=== PATIENT | male | born 1995 | race Caucasian/White ===

== ENCOUNTER 2018-11-30 11:15 | Emergency (ER) | payer BC ==
[2018-11-30 11:58] VITALS: BP 155/58
[2018-11-30] MEDS ORDERED: Acetaminophen TAB* 325 MG PO ONE (12:08)
[2018-11-30 12:17] LABS: Influenza A Molecular POSITIVE (Negative)
--- NOTE | 2018-11-30 12:28 | ED ---
Influenza-Like Illness - HPI Summary HPI Summary: 23 yr old male with the complaint of fever, chills, runny nose, cough, headache. Onset yesterday on his way here from [facility]. He began with some nasal congestion in the morning and then developed chills, body aches and then cough last evening. He has no other complaints. - History of Current Complaint Chief Complaint: UCGeneralIllness Time Seen by Provider: 11/30/18 11:56 - Allergy/Home Medications Allergies/Adverse Reactions: Allergies Allergy/AdvReac Type Severity Reaction Status Date / Time dust, cats, and mold Allergy Eyes Uncoded 05/17/14 14:22 Itchy/Swollen/Red/Watery PMH/Surg Hx/FS Hx/Imm Hx Respiratory History: Reports: Hx Asthma Infectious Disease History: No Infectious Disease History: Denies: Traveled Outside the [place] in Last 30 Days - Family History Known Family History: Positive: None - Social History Alcohol Use: Occasionally Alcohol Amount: weekends Substance Use Type: Reports: Marijuana Substance Use Comment - Amount & Last Used: occasional use Smoking Status (MU): Former Smoker Review of Systems Constitutional: Negative Positive: Sore Throat, Nasal Discharge Positive: Cough All Other Systems Reviewed And Are Negative: Yes Physical Exam Triage Information Reviewed: Yes Vital Signs On Initial Exam: Initial Vitals Temp Pulse Resp BP Pulse Ox 102.3 F 101 17 155/58 99 11/30/18 11:54 11/30/18 11:54 11/30/18 11:54 11/30/18 11:54 11/30/18 11:54 Vital Signs Reviewed: Yes Appearance: Positive: Well-Appearing, No Pain Distress Skin: Positive: Warm, Skin Color Reflects Adequate Perfusion Head/Face: Positive: Normal Head/Face Inspection Eyes: Positive: EOMI, DAGO ENT: Positive: Pharyngeal erythema, Nasal drainage, TMs normal Neck: Positive: Nontender Respiratory/Lung Sounds: Positive: Clear to Auscultation, Breath Sounds Present Cardiovascular: Positive: RRR. Negative: Murmur Abdomen Description: Negative: Distended Musculoskeletal: Positive: Strength/ROM Intact Neurological: Positive: Sensory/Motor Intact, Alert, Oriented to Person Place, Time, CN Intact II-III Psychiatric: Positive: Normal Diagnostics - Vital Signs Vital Signs Temp Pulse Resp BP Pulse Ox 11/30/18 11:54 102.3 F 101 17 155/58 99 - Laboratory Lab Results: Lab Results 11/30/18 Range/Units 12:13 Influenza A (Rapid) Positive A (Negative) Lab Statement: Any lab studies that have been ordered have been reviewed, and results considered in the medical decision making process. Flu Symptom Course/Dx - Course Course Of Treatment: 23 yr old with influenza a. Rx Tamiflu. - Diagnoses Provider Diagnoses: Influenza A, Hypertension Discharge - Sign-Out/Discharge Documenting (check all that apply): Patient Departure All imaging exams completed and their final reports reviewed: No Studies - Discharge Plan Condition: Good Disposition: HOME Prescriptions: Oseltamivir CAP* [Tamiflu CAP*] 75 mg PO BID #10 cap Patient Education Materials: Influenza (ED), Hypertension (ED) Referrals: [facility] [place] [facility] [Outside] No Primary Care Phys,NOPCP [Primary Care Provider] - - Billing Disposition and Condition Condition: GOOD Disposition: Home
== END 2018-11-30 12:31 | disposition home or self-care (01) ==
LOC: UCCORT 11:15
DX: J10.1 Influenza due to other identified influenza virus with other respiratory manifestations (principal); I10 Essential (primary) hypertension; J45.909 Unspecified asthma, uncomplicated; Z87.891 Personal history of nicotine dependence; Z91.09 Other allergy status, other than to drugs and biological substances
CPT/HCPCS: 99212; A9270-GY; G0463